=== PATIENT | female | born 1965 | race Caucasian/White ===

== ENCOUNTER → 2019-12-07 13:01 | Outpatient (BNVA) | payer MEDICARE, MEDICAID, SELFPAY | PROVIDERS: Family Provider Nurse Practitioner Family; Visit Provider Family Medicine | DX: M62.838 Other muscle spasm (principal); M25.50 Pain in unspecified joint; F31.12 Bipolar disorder, current episode manic without psychotic features, moderate; F41.0 Panic disorder [episodic paroxysmal anxiety] | CPT/HCPCS: 80053; 83735; 84443; 84550; 85651; 86431 ==

== ENCOUNTER 2020-10-06 12:29 | Outpatient (CLI) | payer MEDICARE, MEDICAID, SELFPAY ==
--- NOTE | 2020-10-06 12:57 | XR_ITS ---
WS: [id number] Lumbar spine, AP, lateral L5-S1 spot, both obliques, lateral in neutral, flexion and extension positi on, 10/06/2020 Clinical Data: M54.5 - Low back pain Comparison: Lateral lumbar spine, 05/17/2014. Findings: No compression fractures or subluxation is seen. No disc space narrowing is seen. The transverse proc esses and SI joints are normal. There is minimal anterior osteoarthritic spurring from L2 through L5. The oblique films show no spondylolysis. On flexion and extension there is no limitation of motion or subluxation. XR/XR lumbar spine 6V w f/e [id number] Impression: 1. 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 2. No spondylolysis on the oblique films. 3. No limitation of motion or subluxation occurs on flexion or extension.
== END 2020-10-06 12:30 | disposition home or self-care (01) ==
LOC: RAD 12:32
PROVIDERS: Family Provider Nurse Practitioner Family; PCP Family Medicine; Visit Provider Family Medicine
DX: M54.5 Low back pain (principal); M47.816 Spondylosis without myelopathy or radiculopathy, lumbar region
CPT/HCPCS: 72114

== ENCOUNTER 2020-10-25 06:00 | Outpatient (RCR) | payer MEDICARE, SELFPAY | END 2020-11-14 23:59 | disposition home or self-care (01) | LOC: TPT 06:00 | PROVIDERS: PCP Family Medicine; Referring Provider Family Medicine; Visit Provider Family Medicine | DX: M54.5 Low back pain (principal) | CPT/HCPCS: 97110; 97162 ==

== ENCOUNTER 2020-11-15 06:00 | Outpatient (RCR) | payer MEDICARE, SELFPAY | END 2020-12-14 23:59 | disposition home or self-care (01) | LOC: TPT 06:00 | PROVIDERS: PCP Family Medicine; Referring Provider Family Medicine; Visit Provider Family Medicine | DX: M54.5 Low back pain (principal) | CPT/HCPCS: 97110 ==

== ENCOUNTER 2020-11-23 12:32 | Outpatient (CLI) | payer MEDICARE, MEDICAID, SELFPAY ==
--- NOTE | 2020-11-23 13:00 | MM_ITS ---
WS: [id number] Bilateral screening digital mammogram, 11/23/2020 Clinical Data: Z12.31 - Encounter for screening mammogram for malignant neoplasm of breast Comparison: 01/29/2019, 09/06/2010, 05/09/2009, 12/03/2006. Findings: The breast parenchymal pattern shows fibroglandular tissue No spiculated masses or clustered calcific ations are seen. There are no secondary signs of carcinoma. MM/[id number] Impression: 1. Negative bilateral mammogram unchanged. 2. Recommend annual screening mammograms. BIRADS: 1-Negative FOLLOW UP: 1 Year Follow-up The CAD calibration checker was used.
== END 2020-11-23 12:33 | disposition home or self-care (01) ==
LOC: RADSHAW 12:37
PROVIDERS: PCP Family Medicine; Visit Provider Family Medicine
DX: Z12.31 Encounter for screening mammogram for malignant neoplasm of breast (principal)
CPT/HCPCS: 77067

== ENCOUNTER 2021-01-19 19:34 | Emergency (ER) | payer MEDICARE, MEDICAID, SELFPAY ==
[2021-01-19 20:22] VITALS: BP 132/85; PULSE 69; RESP 16; TEMP 36.5; O2SAT 99; BMI 24.2
[2021-01-19 23:03] LABS: Add Urine Microscopic? NO; Charge for UA Resulting for Rev
[2021-01-19 23:10] LABS: Bilirubin Urine Neg (Negative); Blood Urine Neg (Negative); Glucose Urine UA Norm (Normal); Ketones Urine Negative (Negative); Leukocyte Esterase Urine Negative (Negative); Nitrate Urine Negative (Negative); Protein Urine Neg (Negative); Urine Appearance Clear (CLEAR); Urine Color Yellow (Yellow); Urobilinogen Urine Norm (Negative); pH Urine 7 (5-7)
--- NOTE | 2021-01-20 01:18 | W.ED.FEMALGU ---
HPI - Female Genitourinary General: Chief complaint: Urogenital-Female Stated complaint: vaginal issues Time Seen by Provider: 01/20/21 01:18 History of Present Illness: HPI Narrative: 55-year-old female comes in tonight with complaints of bulging from her vagina. Patient reports that she had been lifting and carrying about 45 pounds concrete blocks. After her caring schedule she went into take a shower and she noticed a protrusion from her vagina. Patient appears well. Patient appears in no pain. Patient reports that she had a drop off of her estrogen about 20 years ago. Patient was not a good candidate for estrogen replacement she reported. Review of the exam patient has a history of back pain, cigarette smoking. Review of Systems General: Reports: 10 or more systems reviewed and unremarkable except in HPI and below : Reports: other (Pelvic bulging) [facility] ED PFSH: Social History Smoking and tobacco status: current every day smoker Alcohol intake: current Physical Exam Const: COMMON NORMALS: no acute distress and patient oriented x3 GENERAL APPEARANCE: cooperative HENMT: COMMON NORMALS: normocephalic and Normal external nose present HEAD & SCALP: normal to inspection and normocephalic NOSE: Normal external nose present MOUTH: Normal oral and palatal mucosa present Eye: GENERAL EYE: appearance normal, both eyes and all related structures Neck/C-Spine: COMMON NORMALS: full ROM Chest: COMMONS NORMALS: normal inspection of the chest Resp: COMMON NORMALS: normal respiratory effort EFFORT & INSPECTION: Yes able to speak in complete sentences Cardio: COMMON NORMALS: regular rate and regular rhythm RATE: regular rate RHYTHM: regular rhythm GI: COMMON NORMALS: non-tender : COMMON NORMALS: Yes no CVA tenderness BLADDER/KIDNEY EXAM: Yes no CVA tenderness Back/Pelvis: COMMON NORMALS: no CVA tenderness and thoracic and lumbar spine normal to inspection Extremity: COMMON NORMALS: normal to inspection Neuro: COMMON NORMALS: patient oriented x3 and moves all extremities Psych: COMMON NORMALS: mental status grossly normal and cooperative Skin: COMMON NORMALS: no rashes or lesions noted GENERAL SKIN EXAM: no rashes or lesions noted Course Vital Signs: Vital signs: Vital Signs Temperature 97.7 F 01/19/21 20:22 Pulse Rate 69 01/19/21 20:22 Respiratory Rate 16 01/19/21 20:22 Blood Pressure 132/85 01/19/21 20:22 Pulse Oximetry 99 01/19/21 20:22 MDM - Female MDM Narrative: Medical decision making narrative: 55-year-old female comes in today for complaints of a bulging from her vagina. Patient reports she had been lifting some heavy items and when she was taking a shower she noticed a protrusion of her vagina. On exam patient appears well. Patient appears no acute distress. Patient does have some protrusion of the bladder with probably a grade 2 cystocele. Cervix appeared well. No other signs of abnormality was noted. Reviewed exam with patient with recommendations for treatment follow-up with TECHNOLOGY DEVELOPMENT INTERN. Patient reported understanding agreed to Case management referral for consult to TECHNOLOGY DEVELOPMENT INTERN Lab Data: Labs: Lab Results 01/19/21 Range/Units 23:00 Urine Color Yellow (Yellow) Urine Appearance Clear (CLEAR) Urine pH 7 (5-7) Ur Specific Gravit y 1.000 L (1.005-1.030) Urine Protein Neg (Negative) Urine Glucose (UA) Norm (Normal) Urine Ketones Negative (Negative) Urine Blood Neg (Negative) Urine Nitrate Negative (Negative) Urine Bilirubin Neg (Negative) Urine Urobilinogen Norm (Negative) mg/dL Ur Leukocyte Naomy ase Negative (Negative) Discharge Plan Discharge Patient Disposition: Home Clinical Impression: POP-Q stage 2 cystocele Condition: Stable Prescriptions: No Action meloxicam [Mobic] 15 mg tablet 15 mg PO DAILY Qty: 30 RF: 3 lamotrigine 100 mg tablet 100 mg PO DAILY 30 Days Qty: 30 RF: 5 acetaminophen-codeine 300-60 mg tablet 1 tab PO TID PRN (Reason: pain) Qty: 60 RF: 0 Discharge Orders: Discharge ED (Routine); Ordered 01/20/21 Ordered By: Dick Stewart Referrals: Susan Regan MD [Primary Care Provider] - Discharge Diet: Usual diet Discharge Activity: Increase activity as tolerated Patient Instructions: Cystocele (ED), Opioid Safety Activity Restrictions/Additional Instructions: Home and rest. Avoid heavy lifting. Drink plenty of water. Follow-up with TECHNOLOGY DEVELOPMENT INTERN. Return to the ER for new concerns. Coding Level of Care Code ED [employer] Estate Bro[employer] Associate for Chg Fwd Exam Comprehensive
[2021-01-20 02:02] VITALS: BP 145/83; PULSE 67; RESP 18; TEMP 36.6; O2SAT 94
--- NOTE | 2021-01-20 09:27 | DCPLANNER ---
fountain manager had message to schedule a follow up appointment for patient with [facility]. fountain manager called the [facility], spoke with Hayley, gave clinic patients information. fountain manager was told that patients information would be printed and reviewed. Clinic will call patient with appointment information.
--- NOTE | 2021-01-23 07:39 | DCPLANNER ---
Patient has a follow up appointment scheduled for Saturday, February 13, 2021 at 1:[address] Turpin at [facility]. Clinic will call patient with appointment information.
--- NOTE | 2021-02-15 12:11 | DCPLANNER ---
Patient had an appointment scheduled for 02.13.21 at [facility] - appointment was rescheduled.
== END 2021-01-20 02:03 | disposition home or self-care (01) ==
PROVIDERS: Emergency Provider Nurse Practitioner Family; PCP Family Medicine
DX: N81.10 Cystocele, unspecified (principal); F17.210 Nicotine dependence, cigarettes, uncomplicated
CPT/HCPCS: 81003; 99282

== ENCOUNTER → 2021-04-14 08:08 | Outpatient (BNVA) | payer MEDICARE, MEDICAID, SELFPAY | PROVIDERS: PCP Family Medicine; Visit Provider Obstetrics & Gynecology | DX: N81.6 Rectocele (principal); N81.2 Incomplete uterovaginal prolapse; Z20.822 Contact with and (suspected) exposure to COVID-19 | CPT/HCPCS: 87635 ==

== ENCOUNTER 2021-04-19 13:26 | Observation (INO) | payer MEDICARE, MEDICAID, SELFPAY ==
[2021-04-17 10:54] VITALS: BMI 22.6
--- NOTE | 2021-04-17 11:18 | P.ANESASSM_ITS ---
Pre-Anesthetic Assessment Pre-Anesthetic Assessment: Height/Weight: Height 1.65 m Weight 61.689 kg Proposed Procedure: Operation Date: 04/19/21 08:50 Proposed Procedures p Total Vaginal Hysterectomy 13380 [id number] N81.10 N81.2 N81.6(Not Applicable) - MD isac Campa Salpingo-Oophorectomy (Vaginal)(Not Applicable) - MD isac Campa Anterior Repair Anterior Colporrhaphy(Not Applicable) - MD isac Campa Posterior Repair Posterior Colporrhaphy(Not Applicable) - MD isac Campa Sling(Not Applicable) - MD isac Campa Sacrospinous Ligament Suspension(Not Applicable) - Vasu Turpin MD Familial anesthetic complications: none Social: Social History: Tobacco and No alcohol Exam: Pre-Anes Outpt Exam: alert, oriented x 3, clear to auscultation bilatera lly and regular rate & rhythm Airway: MP: 2 Dentition: False Anesthetic Plan: ASA status: 2 Anesthesia: General Risk of > 500 ml blood loss (7ml/kg in children): No PFSH Anesthesia PFSH: Family History Father CAD (coronary artery disease) Other Cancer Chronic kidney disease (CKD) Diabetes Hyperlipidemia Hypertension Psychiatric illness Denies family history of Clotting disorder Dementia Suicide Anesthesia complication Bleeding disorder Lung disease Stroke Data Anesthesia Cardiac Studies: No Data to Display
[2021-04-19] VITALS (20 sets, daily range): BP systolic 72–136; BP diastolic 37–100; PULSE 65–134; RESP 14–24; TEMP 36.1–37.1; O2SAT 90–100
[2021-04-19] MEDS: sodium chloride 0.9% 500 ML IV ×2 (09:53→20:03)
[2021-04-19 10:12] LABS: Charge for UA Resulting for Rev
[2021-04-19 10:13] LABS: OR HCG Qualitative Urine Negative (Negative)
[2021-04-19 10:19] LABS: Urine Appearance Hazy (CLEAR); Urine Color Yellow (Yellow)
[2021-04-19 10:20] LABS: Add Urine Microscopic? YES; Bilirubin Urine Neg (Negative); Blood Urine Neg (Negative); Glucose Urine UA Norm (Normal); Ketones Urine Negative (Negative); Leukocyte Esterase Urine Trace (Negative); Nitrate Urine Negative (Negative); Protein Urine Neg (Negative); Specific Gravity, Urine 1.025 (1.005-1.030); Urobilinogen Urine Norm (Negative); pH Urine 5 (5-7)
[2021-04-19 10:29] LABS: Add Urine Culture? No; Bacteria Urine 1+ /hpf; Mucus Urine 3+ /hpf; WBC Urine 0-4 /hpf (0-5)
[2021-04-19 10:35] LABS: Alanine Aminotransferase 11 U/L (0-33); Albumin Level 4.5 g/dL (3.5-5.2); Alkaline Phosphatase 107 IU/L (35-105); Anion Gap 15.8 (5-19); Aspartate Amino Transferase 13 U/L (0-32); Blood Urea Nitrogen 9 mg/dL (6-20); Calcium 9.2 mg/dL (8.5-10.5); Carbon Dioxide 25 mmol/L (22-29); Chloride 103 mmol/L (98-107); Globulin 2.2 g/dL (1.3-4.6); Glomerular Filtration Rate 86.2 mL/min (90-130); Glucose 87 mg/dL (65-115); Osmolality Calculated 288 mOsm/kg (285-295); Potassium 3.8 mmol/L (3.5-5.1); Sodium 140 mmol/L (136-145); Total Bilirubin 0.4 mg/dL (0.15-1.2); Total Protein 6.7 g/dL (6.6-8.7)
[2021-04-19] MEDS: sodium chloride 0.9% 1,000 ML 30 ML IV ×3 (10:54→14:47)
[2021-04-19] MEDS: scopolamine 1.5 Patch 1 PATCH TRANSDERMA (10:55)
[2021-04-19 11:17] LABS: Basophils # 0.1 10^3/uL (0.0-0.1); Eosinophils # 0.1 10^3/uL (0.0-0.8); Eosinophils % 1.3 %; Hematocrit 46.8 % (37.0-47.0); Hemoglobin 15.9 g/dL (11.5-15.3); Lymphocytes # 2.4 10^3/uL (0.8-4.8); Lymphocytes % 30.4 %; Mean Corpuscular Hemoglobin 32.4 pg (28.0-34.0); Mean Corpuscular Volume 95.5 fl (81-99); Mean Platelet Volume 12.4 fL (7.4-10.4); Monocytes # 0.5 10^3/uL (0.2-0.9); Monocytes % 6.1 %; Neutrophils # 4.74 10^3/uL (1.8-7.7); Neutrophils % 61.1 %; Nucleated Red Blood Cells % 0 %; Platelet Count 204 10^3/cmm (130-400); Red Cell Distribution Width 12.7 % (12.1-15.1); White Blood Count 7.8 10^3/uL (4.0-10.0)
--- NOTE | 2021-04-19 11:24 | W.PM.OPSUD ---
Surgery/Procedure H&P Update DATE OF PROCEDURE: April 19, 2021 DATE H&P PERFORMED: 04/17/21 H&P UPDATE INFORMATION: I have reviewed H&P completed within last 30 days, I have examined patient prior to procedure and No changes to prior documentation PREOP DIAGNOSIS: Uterine prolapse, cystocele, rectocele, stress urinary incontinence PLANNED PROCEDURE: Operation Date: 04/19/21 10:30 Proposed Procedures p Total Vaginal Hysterectomy 26170 43050 [id number] 61787 N81.10 N81.2 N81.6(Not Applicable) - Vasu Turpin MD s Salpingo-Oophorectomy (Vaginal)(Not Applicable) - Vasu Turpin MD s Anterior Repair Anterior Colporrhaphy(Not Applicable) - Vasu Turpin MD s Posterior Repair Posterior Colporrhaphy(Not Applicable) - Vasu Turpin MD s Sling(Not Applicable) - Vasu Turpin MD s Sacrospinous Ligament Suspension(Not Applicable) - Vasu Turpin MD
[2021-04-19] MEDS: ceFOXitin 2,000 MG in sodium chloride 0.9% (plus) 50 ML 100 MG IV (11:30)
[2021-04-19] MEDS: estrogens Conjugated Cream 30 gm 1 APPLIC VAGINAL (13:04)
--- NOTE | 2021-04-19 13:52 | P.OP_ITS ---
Operative Report Date of procedure: April 19, 2021 Pre-op Diagnosis: Uterine prolapse, cystocele, rectocele, stress urinary incontinence Post-op diagnosis: same Procedure Done: Total vaginal hysterectomy with bilateral salpingo-oophorectomy. Anterior colporrhaphy augmented with allograft. Single incision mid urethral slings. Posterior colporrhaphy. Sacrospinous fixation. Cystoscopy. Specimens removed/disposition: Uterus left and right ovaries Pathology: Uterus left and right ovaries. Surgeon: Vasu Turpin MD Anesthesia: General Estimated blood loss (mL): 300 IV fluids (mL): 1,400 Urine output (mL): 300 Complications: bleeding Condition: stable Disposition: PACU Procedure: After obtaining informed consent, the patient was taken to the operating room and placed in the supine position, given general anesthesia, and prepped and draped in sterile fashion. The abdomen, vulva and vagina were prepped and draped in a sterile manner. A time out procedure was performed. Exam under anesthesia performed. A Alonso catheter was placed in the bladder. A vaginal bookwalter retractor was placed in the vagina to visualize the cervix. The cervix was grasped across the anterior lip with a single-toothed tenaculum and circumferentially infiltrated with 1% Xylocaine with epinephrine at this time. The cervix was circumferentially excised with the scalpel. The vaginal mucosa was dissected superiorly with sharp dissection. The anterior peritoneal reflection was identified, and it was entered with Metzenbaum scissors. A posterior colpotomy was made through the cul-de-sac space. The posterior peritoneum was identified in similar fashion and Metzenbaum scissors were used to enter the cul-de-sac. At this time, the Bookwalter vaginal retractor's posterior blade was placed, advanced posteriorly into the cul-de-sac. At this time, the left and right uterosacral ligaments were isolated and ligated with 0 Vicryl. The Enseal device was then used in a serial fashion up through the cardinal ligaments bilaterally. Finally, the uterine arteries were cross-clamped, cut, and ligated with the Enseal device. Enseal device was then used up through the broad ligaments superiorly and finally the uterus was rotated posteriorly. The left and right tubes were then cross-clamped and ligated with Enseal device. The uterus was excised and submitted for pathologic evaluation. No other abnormalities were noted in the pelvic cavity. Tag sutures had been left on the remnants of the uterosacral ligaments. The right uterosacral ligament tag was placed under traction to identify the remnants of the right uterosacral ligament. A #0 Vicryl suture was placed to the proximal right uterosacral ligament and sutured to the anterior and posterior pelvic fascia beneath the vaginal cuff on the right side. Identical process was performed on the left, although some difficulty was encountered in identifying and actually suturing through the attenuated left uterosacral ligament. Both these sutures were tied to elevate the vaginal cuff. The remaining vaginal cuff mucosa and anterior and posterior fascia were then closed. At this time, instruments were removed from the patient's abdominopelvic cavity. Vaginal cuff closure and peritoneum were incorporated into one layer with 0 Vicryl suture in a continuous running interlocking fashion. Hemostasis was noted to be achieved. Then the anterior vaginal mucosa beneath the midurethra was infiltrated with 0.5% Marcaine with epinephrine. A vertical midline incision was made beneath the midurethra, nearly 1.5 cm length. Careful submucosal dissection was performed bilaterally up to the interior portion of the inferior pubic ramus. The insertion of adductor longus tendon on the patient?s pubic ramus was identified as reference land debra. Palpated the notch along the internal edge of ischiopubic ramus where the adductor longus tendon and the inferior pubic ramus meet. The Altis single incision sling (SIS) was selected. Then the needle of the SIS inserted aiming at the location of this notch. One of the integrated self- fixating tips place onto the needle by sliding it over the end of the needle. The needle/sling assembly was inserted toward the location of identified reference notch making sure that the flat of the handle is perpendicular to the desired path. The needle was tracked along the posterior surface of the ischiopubic ramus until the midline debra on the mesh is approximately at the midline position under the urethra. The needle was removed and the same was repeated on the contralateral side until the appropriate sling tension under the urethra was achieved ensuring that the mesh lays flat. The needle was removed and vaginal incision was closed in a running interlocking fashion with 2-0 Vicryl. Then an anterior colporrhaphy was performed. The vaginal mucosa was then injected in the midline with normal saline. The vaginal mucosa was then injected in the midline with normal saline. The vaginal mucosa was scored in the midline with the Bovie approximately 1 cm medial to the urethral meatus to 1 cm distal to the vaginal cuff. This vaginal mucosa was then undermined and then incised in the midline with the Metzenbaum scissors. The lateral aspects of the vaginal mu cosa were then grasped with the Allis clamps and the vaginal mucosa was then dissected off the underlying fascia with the Metzenbaum scissors. Again, there was noted to be quite a bit of oozing at the incision, which was controlled with cautery. After adequate dissection was performed, bilaterally. A Coloplast allograft was modified at time of application to fit spacea, 3 x 3 cm piece . The coloplast allograft was placed in front of cystocele ready to be implanted with the Basement Membrane facing the vagina mucosa. Suture is placed at distal end of graft and placed towards vaginal cuff. Final suture is placed on proximal portion of the graft to complete the placement overlying the bladder. Then Interrupted vertical mattress sutures of 0 Vicryl were used to elevate the cystocele superiorly. The excessive vaginal mucosa was then trimmed with the Metzenbaum scissors and the vaginal mucosa was then reapproximated in the running interlocking fashion with 2-0 Vicryl. The posterior vaginal mucosa is opened in the routine fashion for posterior colporrhaphy. A finger is inserted through the incision in the posterior vaginal mucosa, dissecting out the rectovaginal space (RVS). The right rectal pillar (RRP) is identified. The rectal pillar can be bluntly perforated either with the [finger or with the tip of a long Sejal clamp]. A [Brelitoy-Navtil] retractor is used for exposing the rectovaginal space in order to enter the pararectal space with retraction of the cardinal ligament, vagina, and rectum. Displacing the rectum to the left and the cardinal ligament and ureter anteriorly. A sponge dissector is used to bluntly dissect the sacrospinous ligament removing areolar tissue. The ischial spine was palpated directly, and a area approximately 2 cm medial to the spine was selected for insertion of the Anchorsure transvaginal sacrospinous fixation system. One end of the suture of Anchoresure system inserted through the sacrospinous ligament is placed through the muscular layer of the vagina. In a similar manner, the second suture is placed. The opposite end of the suture in the sacrospinous ligament is left free and held on a small hemostat. Then traction on this suture will draw the vaginal vault directly to the ligament, where a square knot affixes it to the sacrospinous ligament. After the edwina stich is tied the second safety stich is tied. Then the colporrhaphy/vaginal repair is carried out in routine fashion. Posterior colpoperineorrhaphy was performed with Allis clamps to grasp hymenal caruncles to allow 2-3 fingerbreadths caliber; infiltrated with 1% Lidocaine with epinephrine before triangular incision to excise fibrotic subdermal rectovaginal tissue from old perineal laceration. Fascia dissected off towards vaginal cuff and deemed weakened and thinned-out in midline; colporrhaphy performed with interrupted mattress 0-Vicryl sutures before reinforced with a tension-free 5x5 cms ``in-laid patch of porcine graft towards perineal body after a separate crown stitch with 0-Vicryl performed. Field irrigated; hemostasis secured before vaginal incision closed running- locked with 3-0 Vicryl. Premarin-soaked vaginal pack left in-place overnight. Then the Alonso catheter was removed and cystoscope was inserted. The bladder was filled with sterile water. Complete evaluation of the bladder mucosa was performed noting no lacerations, dimpling, tears, bleeding of the mucosa or muscular layers. Both ureteral orifices were identified. Prompt excretion of urine from both ureteral orifices was noted. Cystoscope was withdrawn. A vaginal packing with Premarin cream was placed and the patient was taken out of dorsal lithotomy position and awakened from the general anesthesia. Excellent hemostasis was obtained. Sponge, lap, needle, and instrument counts were correct times three. The patient was taken to the recovery room, awake and in stable condition.
[2021-04-19] MEDS: meperidine 50 mg/mL INJ 12.5 MG IVP ×2 (14:01→14:09)
[2021-04-19] MEDS: ondansetron 2 mg/ML SDV 2 mL 4 MG IVP (14:15)
[2021-04-19] MEDS: ketorolac 30 mg/mL INJ IVP ×2 (15:29→21:02)
[2021-04-19] MEDS: HYDROcodone-acetaminophen 5-325 mg Tablet PO ×2 (15:30→22:18)
[2021-04-19] MEDS: LORazepam 0.5 mg Tablet 0.25 MG PO ×2 (16:45→23:50)
[2021-04-19] MEDS: docusate sodium 100 mg Capsule PO (18:25)
--- NOTE | 2021-04-19 20:55 | PC.NURSE ---
Addendum entered by Briseida Wade RN 04/19/21 21:00: Care assumed at 1940 with report given at this time. Original Note: ASSUMING CARE Report from Eloy Santiago RN. Patient resting in bed with D5LR running at 125 mL/hour. Patient reports cramping from vaginal packing. 500mL bolus initiated due to urine output of 50mL in 2 hours. Notified patient that next dose of toradol at 2100 and 0300 following the 2100 dose. Vaginal packing and pad assessed, minimal bleeding. Notified that packing and hall catheter will be removed at 0500 and that a hemagram will also be done. Incentive spirometer taken to patient and explained, RN assessed patient 4 times and patient reached goal of 2200. SCD's pump also taken to room and placed on patient. Patient denies any further needs at this time.
[2021-04-19] MEDS: dextrose 5%-lactated ringers 1,000 ML 125 ML IV (21:34)
[2021-04-20 02:07] VITALS: BP 96/57; PULSE 73; RESP 18; O2SAT 97
[2021-04-20] MEDS: HYDROcodone-acetaminophen 5-325 mg Tablet PO ×2 (04:31→10:16)
[2021-04-20 04:41] VITALS: BP 104/63; PULSE 63; RESP 16; TEMP 36.8; O2SAT 99
--- NOTE | 2021-04-20 05:05 | PC.NURSE ---
Vaginal packing removed at 0437. All packing intact. Patient tolerated well.
[2021-04-20 05:12] LABS: Hematocrit 30.5 % (37.0-47.0); Hemoglobin 10.5 g/dL (11.5-15.3); Mean Corpuscular HGB Conc 34.4 g/dL (30.0-36.0); Mean Corpuscular Hemoglobin 32.4 pg (28.0-34.0); Mean Corpuscular Volume 94.1 fl (81-99); Platelet Count 156 10^3/cmm (130-400); Red Blood Count 3.24 10^6/uL (4.1-5.3); Red Cell Distribution Width 12.8 % (12.1-15.1); White Blood Count 11.4 10^3/uL (4.0-10.0)
--- NOTE | 2021-04-20 07:13 | PC.NURSE ---
Post void residual of 82 mL.
[2021-04-20] MEDS: acetaminophen 325 mg Tablet 650 MG PO (08:55)
[2021-04-20] MEDS: docusate sodium 100 mg Capsule PO (08:55)
[2021-04-20 10:20] VITALS: BP 125/73; PULSE 79; RESP 18; TEMP 36.8
--- NOTE | 2021-04-20 10:55 | P.DS_ITS ---
Discharge Providers RED HAT ENGINEER Date of Admission: 04/19/21 13:26 Date of Discharge: 04/20/21 Attending Provider at Admission: Vasu Turpin MD Attending Provider at Discharge: Vasu Turpin MD Primary Care Provider: Susan Regan MD Diagnoses at Discharge Discharge Diagnosis (1) Status post vaginal hysterectomy: Status: Acute Reason for Visit Reason for Visit: total vaginal hysterectomy Hospital Course Hospital Course Mrs. Cummings 55-year-old with uterine prolapse stage II cystocele stage III admitted for planned total vaginal hysterectomy with bilateral salpingo- oophorectomy, anterior colporrhaphy augmented with allograft, single incision mid urethral sling, posterior colporrhaphy, and sacrospinous fixation. The procedures were performed without complication with the exception of mild bleeding. Overnight observation was uneventful. Urine output was adequate. PVR within normal limits. Tolerating diet well. Ambulating without difficulty. She is operative day 1, afebrile and hemodynamically stable. Physical Exam Narrative: EXAM NARRATIVE: GA: Alert and oriented ?3. HEENT: WNL. Heart: Regular rate and rhythm. Lungs: Clear to auscultation bilaterally. Abdomen: Bowel sounds present, nontender. 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 Extremities: No edema, no cyanosis, no calves pain. Urinary Catheter Management^: Alonso: Cath Placed During This Visit: yes Urinary Catheter Date of Insertion: 04/19/21 Urinary Catheter Time of Insertion: 11:58 History History History 3 Term 3 Miscarriages/Ectopic 0 0 Living Children 3 Discharge Data Data Completed and Pending: Pending at discharge Category Date Time Status Pathology: Surgic al [PTH] Routine Pth 04/19/21 12:48 Received Labs from last 24 hours 04/20/21 04/19/21 04/19/21 04:44 09:45 09:45 WBC 11.4 H 7.8 RBC 3.24 L 4.90 Hgb 10.5 L D 15.9 H Hct 30.5 L D 46.8 MCV 94.1 95.5 MCH 32.4 32.4 MCHC 34.4 34.0 RDW 12.8 12.7 Plt Count 156 204 MPV 12.0 H 12.4 H Neut % (Auto) 61.1 Lymph % (Auto) 30.4 Riley % (Auto) 6.1 Eos % (Auto) 1.3 Baso % (Auto) 1.0 Neut # (Auto) 4.74 Lymph # (Auto) 2.4 Riley # (Auto) 0.5 Eos # (Auto) 0.1 Baso # (Auto) 0.1 Nucleated RBC % (a uto) 0 Nucleated RBCs # 0.0 Blood Type O Positive Rho(D) Type Positive Antibody Screen Negative Vitals: Last Vital Signs Temp 98.2 F 04/20/21 10:20 Pulse 79 04/20/21 10:20 Resp 18 04/20/21 10:20 BP 125/73 04/20/21 10:20 Pulse Ox 99 04/20/21 04:41 Discharge Plan Discharge Patient Disposition: Home Condition: Stable Prescriptions: New acetaminophen 325 mg capsule 325 mg PO Q4H PRN (Reason: fever or postoperative pain pain) Qty: 60 RF: 0 ibuprofen 800 mg tablet 800 mg PO TID PRN (Reason: pain) Qty: 60 RF: 0 Colace 100 mg capsule 100 mg PO BID Qty: 60 RF: 0 hydrocodone-acetaminophen 5-325 mg tablet 1 tab PO Q4H PRN (Reason: pain) Qty: 30 RF: 0 Iron (ferrous sulfate) 325 mg (65 mg iron) tablet 325 mg PO BID Qty: 60 RF: 0 Continued lamotrigine 100 mg tablet 100 mg PO DAILY 30 Days Qty: 30 RF: 5 elderberry fruit 200 mg Capsule 200 mg PO DAILY RF: 0 Discharge Orders: Discharge Order (Routine); Ordered 04/20/21 Ordered By: Vasu Turpin Referrals: Vasu Turpin MD [Physician] - 05/05/21 8:00 am (Your 2 week post-op appointment is scheduled for 05/05/21 @8:00. Your 6 week post-op appointment is scheduled for 06/02/21 @8:45. ) Discharge Diet: Soft Mechanical Discharge Activity: Increase activity as tolerated Patient Instructions: Bowel Obstruction, Opioid Safety (DC), Vaginal Hysterectomy (DC), Anterior Vaginal Repair (GEN), Posterior Vaginal Repair (GEN), OB Discharge Report, OB Food/Drug Interaction Guide, Opioid Safety Activity Restrictions/Additional Instructions: 1. Please call [facility] on next working day to make your post-operative appointment in 2 weeks. 2. Please stay home until you come back to the clinic on first post-operative check up. 3. Please follow instructions on your medications CAREFULLY. 4. If you have abdominal incision, do not cover it unless dressing is necessary because of drainage. OK to shower, but avoid bath. Leave steri-strips until they fall off. If they are still on one week after surgery, you may remove them. 5. If you had vaginal surgery or vaginal repair, Dr. Turpin may instruct you to take SITZ bath. 6. Yellow, blood tinged odorous vaginal discharge is usually normal after hysterectomy or vaginal surgeries. 7. No sexual intercourse, tampons, or douches until you are completely released from the post-operative care. 8. Avoid constipation by eating right and maybe using some Metamucil or Milk of Magnesia. 9. All prescription refills are given during the working hours. Please do no wait till it runs out. Call the clinic at [phone] before your medication runs out. The clinic will get in touch with your doctor to prescribe medications if necessary. 10. Please remain within 40 mile radius from our hospital because emergencies do happen now and then during the post-operative period. 11. If you have stairs at home, take one step at a time slowly and minimize the number of trips. It helps to stay in one floor for the next few days. No lifting except what you can lift by one hand until you are released from the post-operative care. 12. Driving is discouraged until you are well healed. It may be 3-4 weeks before you feel strong enough to drive. You should be able to turn and look through the rear window without pain and you should be able to push the brake pedal very hard without pain before you drive. No fast rules, but SAFETY should be your primary concern. DO NOT drive if you are on sedating medications such as narcotics. 13. Call the clinic (during working hours) to make urgent appointment or go to the Emergency room, if any of the following occurs: i. Vaginal bleeding becomes heavy, more than a period. ii. Incision becomes red and sore, or drains pus. iii. Your temperature is over 100.4 or you have chill. iv. IV site becomes red and swollen (a little ``knot?? is usually OK) v. Persistent nausea and vomiting vi. Persistent constipation or diarrhea vii. Rash or allergic reaction to medications. Discharge Attestations RED HAT ENGINEER Time Spent in Discharge Care*: greater than 30 min Coding Level of Care Code Acute Ground Crew Supervisor for Chg Fwd Diagnoses Status post vaginal hysterectomy Z90.710
[2021-04-20 11:20] VITALS: BP 114/79; PULSE 71; RESP 16; TEMP 36.6
[2021-04-20 11:30] VITALS: BP 114/79; PULSE 71; RESP 16; TEMP 36.6
== END 2021-04-20 11:30 | disposition home or self-care (01) ==
LOC: OBGYN 13:27
PROVIDERS: Admitting Provider Obstetrics & Gynecology; PCP Family Medicine; Visit Provider Obstetrics & Gynecology
PROC: (CPT 57260; principal; 2021-04-19 10:25)
PROC: (CPT 58720; 2021-04-19 10:25)
PROC: 0JQC0ZZ Repair Pelvic Region Subcutaneous Tissue and Fascia, Open Approach (ICD-10-PCS; CPT 57240; 2021-04-19 10:25)
PROC: (CPT 57250; 2021-04-19 10:25)
PROC: (CPT 57288; 2021-04-19 10:25)
PROC: (CPT 57282; 2021-04-19 10:25)
DX: N81.2 Incomplete uterovaginal prolapse (principal); N39.3 Stress incontinence (female) (male); F17.210 Nicotine dependence, cigarettes, uncomplicated; Z98.51 Tubal ligation status
CPT/HCPCS: 57260; 57267; 57282; 57288; 58262; 36415; 51798; 80053; 81001; 81003; 81025; 84703; 85025; 85027; 86850; 86900; 88305; 96365; C1713; C1762; G0378; J0694; J1170; J1885; J2175; J2405; J2704; J3010; J3490; J7030; J7040; Q9968

== ENCOUNTER → 2021-06-23 08:07 | Outpatient (BNVA) | payer MEDICARE, MEDICAID, SELFPAY | PROVIDERS: PCP Family Medicine; Visit Provider Obstetrics & Gynecology | DX: N89.8 Other specified noninflammatory disorders of vagina (principal) | CPT/HCPCS: 87635 ==

== ENCOUNTER 2021-06-29 10:31 | Day surgery (SDC) | payer MEDICARE, MEDICAID, SELFPAY ==
[2021-06-23 09:02] VITALS: BMI 22.4
--- NOTE | 2021-06-23 14:30 | P.ANESASSM_ITS ---
Pre-Anesthetic Assessment Pre-Anesthetic Assessment: Height/Weight: Height 1.65 m Weight 61.235 kg Preop Diagnosis: Uterine prolapse, cystocele, rectocele, stress urinary incontinence Proposed Procedure: Operation Date: 06/29/21 12:00 Proposed Procedures p Vaginal Incision Revision 95321/granulation tissue of vagins N89.8(Not Applicable) - Vasu Turpin MD Familial anesthetic complications: None Was Beta Sherri taken within 24 hours: N/A Was Clonidine taken within 24 hours: N/A Social: Social History: Tobacco Exam: Pre-Anes Outpt Exam: alert, oriented x 3, clear to auscultation bilaterally and regular rate & rhythm Airway: Submandibular: WNL Cervical ROM: WNL MP: 1 Dentition: False History/ROS: No significant complaints Pulmonary: Pulmonary: None reported Comments: Hx of bronchitis CV/HEM: CV/HEM: None reported : : None reported Hepatic: Hepatic: None reported GI: GI: GERD Metabolic: Metabolic: None reported Musc/skel: Musc/skel: Lower Back Pain Neuropsych: Neuropsych: None reported Anesthetic Plan: ASA status: 2 Anesthesia: General Risk of > 500 ml blood loss (7ml/kg in children): No PFSH Anesthesia PFSH: Medical History (Updated 06/03/21 @ 11:47 by Vasu Turpin MD) Aftercare following surgery of the genitourinary system Surgical History (Updated 05/05/21 @ 10:19 by Vasu Turpin MD) H/O: hysterectomy 04/19/2021- bilateral salpingo oophorectomy, anterior colporrhaphy augmented with allograft, single incision mid urethral slings, posterior colporrhaphy, sacrospinous fixation and cystoscopy History of bilateral tubal ligation [place], [place] by Dr. Barone Family History Father CAD (coronary artery disease) Other Cancer Chronic kidney disease (CKD) Diabetes Hyperlipidemia Hypertension Psychiatric illness Denies family history of Clotting disorder Dementia Suicide Anesthesia complication Bleeding disorder Lung disease Stroke Data Anesthesia Cardiac Studies: No Data to Display
[2021-06-29] VITALS (10 sets, daily range): BP systolic 122–150; BP diastolic 68–88; PULSE 72–110; RESP 12–18; TEMP 36.3–36.6; O2SAT 93–98
[2021-06-29] MEDS: sodium chloride 0.9% 500 ML IV (11:05)
[2021-06-29] MEDS: sodium chloride 0.9% 1,000 ML 30 ML IV (11:19)
--- NOTE | 2021-06-29 11:20 | P.ANESUD_ITS ---
Pre-Anesthetic Update Pre-Anesthetic Assessment: Date of Surgery/Procedure: 06/29/21 Preop Araseli gnosis: Vaginal granulation tissue and partial dehiscence Proposed Procedure: Operation Date: 06/29/21 12:00 Proposed Procedures p Vaginal Incision Revision 38547/granulation tissue of vagins N89.8(Not Applicable) - Vasu Turpin MD Any changes to Pre-Anesthetic Assessment?: No Last Intake: Intake Last Liquid Date 06/28/21 Last Liquid Time 20:00 Last Solid Date 06/28/21 Last Solid Time 20:00 Vitals: Temperature 97.8 F 06/29/21 10:53 Temperature Source Temporal Artery S can 06/29/21 10:53 Pulse Rate 75 06/29/21 10:53 Respiratory Rate 16 06/29/21 10:53 Blood Pressure 150/87 06/29/21 10:53 Blood Pressure Nia n 108 06/29/21 10:53 Pulse Oximetry 97 06/29/21 10:53 Oxygen Delivery Me thod 06/29/21 10:53 Exam: Pre-Anes Outpt Exam: alert, oriented x 3, clear to auscultation bilat erally and regular rate & rhythm Other Pertinent Information: Other Pertinent Information: Syncope w/ IV, brief, witnessed. A x O 3 now, will proceed with surgery. Fluid bolus admin. Cardiac Studies: No Data to Display
[2021-06-29 11:22] LABS: Add Urine Microscopic? YES; Bilirubin Urine Neg (Negative); Blood Urine Trace (Negative); Glucose Urine UA Norm (Normal); Ketones Urine Negative (Negative); Leukocyte Esterase Urine 2+ (Negative); Nitrate Urine Negative (Negative); Protein Urine Neg (Negative); Specific Gravity, Urine 1.015 (1.005-1.030); Urine Appearance Clear (CLEAR); Urine Color Yellow (Yellow); Urobilinogen Urine Norm (Negative); pH Urine 6 (5-7)
[2021-06-29 11:23] LABS: Add Urine Culture? No; Bacteria Urine 2+ /hpf; Mucus Urine 1+ /hpf; WBC Urine 25-40 /hpf (0-5)
[2021-06-29 11:32] LABS: Basophils # 0.1 10^3/uL (0.0-0.1); Basophils % 0.9 %; Eosinophils # 0.1 10^3/uL (0.0-0.8); Eosinophils % 1.2 %; Hematocrit 44.2 % (37.0-47.0); Hemoglobin 14.7 g/dL (11.5-15.3); Lymphocytes # 2.3 10^3/uL (0.8-4.8); Mean Corpuscular HGB Conc 33.3 g/dL (30.0-36.0); Mean Corpuscular Hemoglobin 31.8 pg (28.0-34.0); Mean Corpuscular Volume 95.7 fl (81-99); Mean Platelet Volume 11.5 fL (7.4-10.4); Monocytes # 0.4 10^3/uL (0.2-0.9); Monocytes % 5.9 %; Neutrophils # 3.93 10^3/uL (1.8-7.7); Neutrophils % 57.9 %; Nucleated Red Blood Cells % 0 %; Platelet Count 187 10^3/cmm (130-400); Red Blood Count 4.62 10^6/uL (4.1-5.3); Red Cell Distribution Width 12.4 % (12.1-15.1); White Blood Count 6.8 10^3/uL (4.0-10.0)
--- NOTE | 2021-06-29 11:42 | W.PM.OPSUD ---
Surgery/Procedure H&P Update DATE OF PROCEDURE: June 29, 2021 DATE H&P PERFORMED: 06/26/21 H&P UPDATE INFORMATION: I have reviewed H&P completed within last 30 days, I have examined patient prior to procedure and No changes to prior documentation PREOP DIAGNOSIS: Vaginal granulation tissue and partial dehiscence PLANNED PROCEDURE: Operation Date: 06/29/21 12:00 Proposed Procedures p Vaginal Incision Revision 99206/granulation tissue of vagins N89.8(Not Applicable) - Vasu Turpin MD
[2021-06-29 11:48] LABS: Alanine Aminotransferase 16 U/L (0-33); Albumin Level 4.4 g/dL (3.5-5.2); Alkaline Phosphatase 120 IU/L (35-105); Anion Gap 17.8 (5-19); Aspartate Amino Transferase 16 U/L (0-32); Blood Urea Nitrogen 11 mg/dL (6-20); Calcium 8.5 mg/dL (8.5-10.5); Carbon Dioxide 21 mmol/L (22-29); Chloride 105 mmol/L (98-107); Globulin 2.3 g/dL (1.3-4.6); Glomerular Filtration Rate 86.2 mL/min (90-130); Glucose 88 mg/dL (65-115); Osmolality Calculated 289 mOsm/kg (285-295); Potassium 3.8 mmol/L (3.5-5.1); Sodium 140 mmol/L (136-145); Total Bilirubin 0.2 mg/dL (0.15-1.2); Total Protein 6.7 g/dL (6.6-8.7)
[2021-06-29] MEDS: lidocaine 2% INJ 20 mL INJECTION (12:31)
--- NOTE | 2021-06-29 12:50 | PM.OP ---
Operative Report Date of procedure: June 29, 2021 Pre-op Diagnosis: Vaginal granulation tissue and partial dehiscence Post-op diagnosis: same Procedure Done: Vaginal incision revision and granulating tissue removal Pathology: none sent Lithographic Proofer: Vasu Turpin MD Estimated blood loss (mL): 5 IV fluids (mL): 600 Urine output (mL): 25 Condition: stable Disposition: PACU Procedure: After obtaining informed consent, the patient was taken to the operating room and placed in the supine position, given general anesthesia, and prepped and draped in sterile fashion. The abdomen, vulva and vagina were prepped and draped in a sterile manner. A time out procedure was performed. The anterior vaginal mucosa beneath the midurethra was infiltrated with 0.5% Marcaine with epinephrine. The granulation tissue sorrounding the partial dehsence of midurethral incision was removed with bovie. Then the vaginal mucose beneath the midurethra, was undemined with Metzenbaum scissors and careful submucosal dissection was performed and vaginal incision was reapproximated and closed in a running interlocking fashion with 2-0 Vicryl. Excellent hemostasis was obtained. Sponge, lap, needle, and instrument counts were correct times three. The patient was taken to the recovery room, awake and in stable condition.
--- NOTE | 2021-06-29 13:02 | P.PCN_ITS ---
PACU note PACU note: VSS, Good respiratory effort, report to TON CONTAINER FILLER Post-Anesthesia Exam: awake
--- NOTE | 2021-06-29 13:02 | PM.PACU ---
PACU note PACU note: VSS, Good respiratory effort, report to ELECTRICAL LABORATORY TECHNICIAN Post-Anesthesia Exam: awake
--- NOTE | 2021-06-29 14:32 | ANE.PACU2 ---
Inpatient post-anesthesia follow up: Airway intact: Yes Vital signs: Temperature 98 F Pulse Rate 80 Respiratory Rate 16 Blood Pressure 122/80 Pulse Oximetry 95 Oxygen Delivery Me thod Room Air Oxygen Flow Rate 6 Fraction of Inspir ed Oxygen Hydration adequate: Yes Nausea and vomiting: No Pain level: 3 Mental status: Baseline
== END 2021-06-29 14:25 | disposition home or self-care (01) ==
PROVIDERS: PCP Family Medicine; Visit Provider Obstetrics & Gynecology
PROC: (CPT 12020; principal; 2021-06-29 12:00)
DX: A58 Granuloma inguinale (principal); Z82.49 Family history of ischemic heart disease and other diseases of the circulatory system; F17.210 Nicotine dependence, cigarettes, uncomplicated; K21.9 Gastro-esophageal reflux disease without esophagitis; N89.8 Other specified noninflammatory disorders of vagina
CPT/HCPCS: 12020; 36415; 80053; 81001; 85025; 86850; 86900; 96365; J0330; J0690; J1100; J2405; J2704; J3010; J3490; J7030; J7040

== ENCOUNTER → 2021-08-08 17:15 | Outpatient (BNVA) | payer MEDICARE, MEDICAID, SELFPAY | PROVIDERS: PCP Family Medicine; Visit Provider Family Medicine | DX: N64.52 Nipple discharge (principal); F41.9 Anxiety disorder, unspecified; N64.4 Mastodynia | CPT/HCPCS: 80053; 84146; 84443 ==

== ENCOUNTER 2021-08-25 13:14 | Outpatient (CLI) | payer MEDICARE, MEDICAID, SELFPAY ==
--- NOTE | 2021-08-25 13:20 | US_ITS ---
WS: [id number] ULTRASOUND BREASTS BILATERAL TECHNIQUE: Ultrasound bilateral breasts focused area of concern. CLINICAL INFORMATION: N64.4 - Mastodynia clear LEFT breast nipple discharge. COMPARISON: Ultrasound and mammogram November 23, 2020 FINDINGS: Ultrasound bilateral breasts at the areola and patient directed areas LEFT breast in the area of pain . Normal underlying parenchymal tissue. No suspicious abnormalities. Tiny incidental cyst measuring 3 mm at the 6:00 position areola. Comparison RIGHT breast areola is normal in appearance. No suspiciou s lesions to target for biopsy. US/US breast LT complete [id number] IMPRESSION: BI-RADS 2 benign FOLLOW UP: Return to annual screening mammography.
== END 2021-08-25 13:15 | disposition home or self-care (01) ==
LOC: RAD 13:15
PROVIDERS: PCP Family Medicine; Visit Provider Family Medicine
DX: N64.4 Mastodynia (principal); N64.52 Nipple discharge
CPT/HCPCS: 76641

== ENCOUNTER → 2021-09-19 09:17 | Outpatient (BNVA) | payer MEDICARE, MEDICAID, SELFPAY | PROVIDERS: PCP Family Medicine; Visit Provider Obstetrics & Gynecology | DX: N81.4 Uterovaginal prolapse, unspecified (principal) | CPT/HCPCS: 81000 ==

== ENCOUNTER → 2021-10-09 10:04 | Outpatient (BNVA) | payer MEDICARE, MEDICAID, SELFPAY | PROVIDERS: PCP Family Medicine; Visit Provider Obstetrics & Gynecology | DX: N99.3 Prolapse of vaginal vault after hysterectomy (principal); Z01.812 Encounter for preprocedural laboratory examination; Z20.822 Contact with and (suspected) exposure to COVID-19 | CPT/HCPCS: 80053; 81000; 85025; 86850; 86900; 87635 ==

== ENCOUNTER 2021-10-11 17:16 | Observation (INO) | payer MEDICARE, MEDICAID, SELFPAY ==
[2021-10-06 13:05] VITALS: BMI 23.6
--- NOTE | 2021-10-06 14:59 | P.ANESASSM_ITS ---
Pre-Anesthetic Assessment Height/Weight: Height 1.65 m Weight 64.41 kg Preop Diagnosis: Vaginal granulation tissue and partial dehiscence Operation Date: 10/11/21 12:05 Proposed Procedures p Sacrospinous Ligament Suspension 04245/n99.3(Not Applicable) - Vasu Turpin MD Familial anesthetic complications: Has had a panic attack on awakening Was Beta Sherri taken within 24 hours: N/A Was Clonidine taken within 24 hours: N/A Social Tobacco and No alcohol Exam alert, oriented x 3, clear to auscultation bilaterally and regular rate & rhythm Airway Submandibular: within normal limits Cervical ROM: Other (Full ROM but with some pain in extension ) Mallampati: Class II Dentition: false Pulmonary Exertional Dyspnea and None reported subureteral sling erosion Hepatic None reported GI None reported Metabolic None reported Musc/skel None reported Neuropsych Anxiety Anesthetic Plan ASA status: 3 (56 year female smoker ) Anesthesia: Anesthesia Evaluation and General Other: We discussed risk and benefits of general anesthesia including PONV, sore throat (sometimes severe), corneal abrasion, positioning and peripheral nerve injuries, life threatening allergic reaction, post operative ICU admission requiring prolonged intubation, stroke, heart attack, , and rare incidences of recall. Patient consents to proceed with general anesthesia. Risk of > 500 ml blood loss (7ml/kg in children): No Other Pertinent Information Today I conducted a brief goal based motivational smoking cessation intervention with the patient. We discussed the health risk of prolonged tobacco use, as well as the risk of richard-operative tobacco use and its impact on wound healing/post- op infections. Patient realizes her smoking has impaired her recovery and stated this on her own w/o prompting. She states she is actively working at permanent cessation. Medications/Allergies Home Medications Medication Instructions Recorded Confirmed Last Taken Type elderberry fruit 200 mg capsule 200 mg PO DAILY 04/17/21 10/06/21 06/28/21 History docusate sodium 100 mg capsule 100 mg PO DAILY cap 06/02/21 10/06/21 06/28/21 History (Colace) ibuprofen 800 mg tablet 800 mg PO TID PRN #60 tab 06/29/21 10/06/21 Unknown Rx lamotrigine 100 mg tablet 100 mg PO DAILY 06/29/21 10/06/21 06/28/21 History (Lamictal) buspirone 7.5 mg tablet 7.5 mg PO TID #90 tab 09/18/21 10/06/21 Unknown Rx clonazepam 0.5 mg tablet 0.5 mg PO DAILY #10 tab 10/03/21 10/06/21 Unknown Rx clindamycin HCl 300 mg capsule 300 mg PO TID #30 cap 10/04/21 10/06/21 Unknown Rx Allergies Allergy/AdvReac Type Severity Reaction Status Date / Time quetiapine [From Seroquel] Allergy Severe skin Verified 10/06/21 13:02 peeling [facility] Anesthesia Medical History Aftercare following surgery of the genitourinary system Surgical History H/O: hysterectomy 04/19/2021- bilateral salpingo oophorectomy, anterior colporrhaphy augmented with allograft, single incision mid urethral slings, posterior colporrhaphy, sacrospinous fixation and cystoscopy History of bilateral tubal ligation [place], [place] by Dr. Barone Family History Father CAD (coronary artery disease) Other Cancer Chronic kidney disease (CKD) Diabetes Hyperlipidemia Hypertension Psychiatric illness Denies family history of Clotting disorder Dementia Suicide Anesthesia complication Bleeding disorder Lung disease Stroke Social History Smoking and tobacco status: current every day smoker Data Anesthesia Cardiac Studies: No Data to Display
[2021-10-11] VITALS (20 sets, daily range): BP systolic 118–165; BP diastolic 76–106; PULSE 63–111; RESP 14–22; TEMP 36.4–36.9; O2SAT 88–100
[2021-10-11] MEDS: sodium chloride 0.9% 1,000 ML 30 ML IV (11:35)
[2021-10-11] MEDS: sodium chloride 0.9% 500 ML IV (11:40)
--- NOTE | 2021-10-11 12:13 | P.ANESUD_ITS ---
Pre-Anesthetic Update Pre-Anesthetic Assessment: Date of Surgery/Procedure: 10/11/21 Preop Araseli gnosis: Vaginal granulation tissue and partial dehiscence Proposed Procedure: Operation Date: 10/11/21 12:05 Proposed Procedures p Sacrospinous Ligament Suspension 27879/n99.3(Not Applicable) - Vasu Turpin MD Any changes to Pre-Anesthetic Assessment?: No Last Intake: Intake Last Liquid Date 10/10/21 Last Liquid Time 20:00 Last Solid Date 10/10/21 Last Solid Time 19:00 Vitals: Temperature 98.5 F 10/11/21 11:09 Temperature Source Temporal Artery S can 10/11/21 11:09 Pulse Rate 73 10/11/21 11:09 Pulse Rhythm 10/11/21 11:13 Pulse Strength 3+ Normal 10/11/21 11:13 Respiratory Rate 16 10/11/21 11:09 Blood Pressure 149/106 10/11/21 11:09 Blood Pressure Nia n 120 10/11/21 11:09 Pulse Oximetry 96 10/11/21 11:09 Oxygen Delivery Me thod 10/11/21 11:13 Exam: Pre-Anes Outpt Exam: alert, oriented x 3, clear to auscultation bilaterally and regular rate & rhythm Cardiac Studies: No Data to Display
[2021-10-11] MEDS: midazolam 1 mg/mL INJ 2 mL 2 MG IVP (13:09)
[2021-10-11] MEDS: scopolamine 1.5 Patch 1 PATCH TRANSDERMA (13:13)
--- NOTE | 2021-10-11 14:42 | W.PM.OPSUD ---
Surgery/Procedure H&P Update DATE OF PROCEDURE: October 11, 2021 DATE H&P PERFORMED: 10/09/21 H&P UPDATE INFORMATION: I have reviewed H&P completed within last 30 days, I have examined patient prior to procedure and No changes to prior documentation PREOP DIAGNOSIS: Vaginal granulation tissue and partial dehesince, Vaginal apex descend PLANNED PROCEDURE: Operation Date: 10/11/21 12:05 Proposed Procedures p Sacrospinous Ligament Suspension 74909/n99.3(Not Applicable) - Vasu Turpin MD
[2021-10-11] MEDS: estrogens Conjugated Cream 30 gm 1 APPLIC VAGINAL (16:00)
--- NOTE | 2021-10-11 16:18 | PM.OP ---
Operative Report Date of procedure: October 11, 2021 Pre-op diagnosis: Preop Diagnosis Vaginal granulation tissue and partial dehesince , Vaginal apex descend Post-op diagnosis: Vaginal granulation tissue and partial vaginal incision dehesince. Procedure done: Vaginal incision revision augmented with allograft. Surgeon: Vasu Turpin MD Estimated blood loss (mL): 25 Urine output (mL): 200 Complications: Normal Findings: Vaginal granulation tissue and partial approximately 2 cm vaginal incision dehiscence. Procedure: After obtaining informed consent, the patient was taken to the operating room and placed in the supine position, given general anesthesia, and prepped and draped in sterile fashion. The abdomen, vulva and vagina were prepped and draped in a sterile manner. A time out procedure was performed. The granulation tissue was removed and the partial vaginal incision dehiscence was exposed and the vaginal mucosa surrounding the exposed sling. was then injected in the midline with normal saline. The vaginal mucosa was scored in the midline with the Bovie approximately 1 cm medial to the urethral meatus to 1 cm distal to the [vaginal cuff/cervix]. This vaginal mucosa was then undermined and then incised in the midline with the Metzenbaum scissors. The lateral aspects of the vaginal mucosa were then grasped with the Allis clamps and the vaginal mucosa was then dissected off the underlying fascia with the Metzenbaum scissors. Again, there was noted to be quite a bit of oozing at the incision, which was controlled with cautery. After adequate dissection was performed, bilaterally. A Coloplast allograft is modified at time of application to fit spacea, 3 x 3 cm piece . Allograft placed in front of cystocele ready to be implanted with the Basement Membrane facing the vagina mucosa. Suture is placed at distal end of graft and placed towards vaginal cuff. Final suture is placed on proximal portion of the graft to complete the placement overlying the bladder. Then Interrupted vertical mattress sutures of 0 Vicryl were used to elevate the cystocele superiorly. The excessive vaginal mucosa was then trimmed with the Metzenbaum scissors and the vaginal mucosa was then reapproximated in the running interlocking fashion with 2-0 Vicryl. After the repair he was noted that sacrospinous fixation was not needed. then the Alonso catheter was removed and cystoscope was inserted. The bladder was filled with sterile water. Complete evaluation of the bladder mucosa was performed noting no lacerations, dimpling, tears, bleeding of the mucosa or muscular layers. Both ureteral orifices were identified. Prompt excretion of urine from both ureteral orifices was noted. Cystoscope was withdrawn. The Alonso catheter was replaced. Excellent hemostasis was obtained. A vaginal pack is placed overnight as postoperative support for the vaginal tissues after graft placement and closure of vaginal incisions. Sponge, lap, needle, and instrument counts were correct times three. The patient was taken to the recovery room, awake and in stable condition.
[2021-10-11] MEDS: fentaNYL 50 mcg/mL INJ 2mL IVP ×2 (16:25→16:40)
--- NOTE | 2021-10-11 17:27 | PC.NURSE ---
patient arrived via stretcher from PACU at this time, large amount of bleeding was noted on sheets from pacu. No active bleeding was noted upon assessment. Patients gown and chuxs were changed upon arrival and fresh pad placed between her legs
[2021-10-11] MEDS: HYDROcodone-acetaminophen 5-325 mg Tablet PO (17:31)
[2021-10-11] MEDS: ketorolac 30 mg/mL INJ IVP ×2 (17:32→23:34)
[2021-10-11] MEDS: dextrose 5%-lactated ringers 1,000 ML 125 ML IV (17:33)
[2021-10-11] MEDS: HYDROmorphone 1 mg/mL INJ 1 mL IVP ×2 (17:50→22:31)
--- NOTE | 2021-10-11 18:19 | ANE.PACU2 ---
Inpatient post-anesthesia follow up: Airway intact: Yes Vital signs: Temperature 97.8 F Pulse Rate 74 Respiratory Rate 20 Blood Pressure 163/99 Pulse Oximetry 100 Oxygen Delivery Me thod Room Air Oxygen Flow Rate 2 Fraction of Inspir ed Oxygen Hydration adequate: Yes Nausea and vomiting: No Pain level: 2 Mental status: Baseline
[2021-10-11] MEDS: BuSPIRONE 10 mg Tablet 7.5 MG PO (21:00)
[2021-10-11] MEDS: clindamycin 150 mg Capsule 300 MG PO (21:01)
[2021-10-11] MEDS: alum-mag-hydroxide-sime 30 mL UDC PO (22:39)
[2021-10-12 00:06] VITALS: BP 97/61; PULSE 64; RESP 14; O2SAT 97
[2021-10-12] MEDS: dextrose 5%-lactated ringers 1,000 ML 125 ML IV (02:00)
[2021-10-12 03:56] VITALS: BP 115/72; PULSE 65; RESP 13; TEMP 36.8; O2SAT 98
[2021-10-12] MEDS: HYDROcodone-acetaminophen 5-325 mg Tablet PO ×2 (04:08→10:42)
[2021-10-12 05:17] LABS: Hematocrit 37.8 % (37.0-47.0); Hemoglobin 12.6 g/dL (11.5-15.3); Mean Corpuscular HGB Conc 33.3 g/dL (30.0-36.0); Mean Corpuscular Hemoglobin 31.8 pg (28.0-34.0); Mean Corpuscular Volume 95.5 fl (81-99); Mean Platelet Volume 11.2 fL (7.4-10.4); Platelet Count 168 10^3/cmm (130-400); Red Blood Count 3.96 10^6/uL (4.1-5.3); Red Cell Distribution Width 12.7 % (12.1-15.1); White Blood Count 12.6 10^3/uL (4.0-10.0)
[2021-10-12] MEDS: ketorolac 30 mg/mL INJ IVP (05:28)
--- NOTE | 2021-10-12 06:43 | PC.NURSE ---
QBL: 1940 Wet Weight: 820g Dry Weight: 720g QBL: 100 2000 Wet Weight: 110g Dry Weight: 60g QBL: 50 2200 Wet Weight: 245g Dry Weight: 140g QBL: 105g
--- NOTE | 2021-10-12 06:57 | PC.NURSE ---
vaginal packing was removed per MD order at 1940 on 10/11/21
[2021-10-12] MEDS: docusate sodium 100 mg Capsule PO (09:25)
[2021-10-12] MEDS: ibuprofen 800 mg tablet PO (09:25)
[2021-10-12] MEDS: BuSPIRONE 10 mg Tablet 7.5 MG PO (09:27)
[2021-10-12] MEDS: clindamycin 150 mg Capsule 300 MG PO (09:27)
[2021-10-12 09:30] VITALS: BP 131/74; PULSE 74; RESP 16; TEMP 36.7
--- NOTE | 2021-10-12 12:25 | P.DS_ITS ---
Discharge Providers WEB APPLICATION TESTER Date of Admission: 10/11/21 17:16 Date of Discharge: 10/12/21 Attending Provider at Admission: Vasu Turpin MD Attending Provider at Discharge: Vasu Turpin MD Primary Care Provider: Susan Regan MD Reason for Visit Reason for Visit: prolapse of vag cuff after hysterectomy Hospital Course Hospital Course Mrs. Cummings 56-year-old female is status post single incision mid urethral sling that developed granulating tissue and partial dehiscence of vaginal incision after her second revision. Admitted for planned granulating tissue removal and revision of incision again and possible sacrospinous fixation. Sacrospinous fixation was not needed after removal of granulating tissue and vaginal revision of partial dehiscence. The procedures were performed without complication. Postop observation overnight significant for some vaginal bleeding, that was later controlled. She was administered TXA. She is afebrile hemodynamically stable postoperative day 1. Tolerating diet well. Ambulating without difficulty. PVR however is elevated and the patient needs to be discharged with a Alonso catheter and was instructed to follow-up Saturday at the clinic. Physical Exam Narrative: GA: Alert and oriented ?3. HEENT: WNL. Heart: Regular rate and rhythm. Lungs: Clear to auscultation bilaterally. Abdomen: Bowel sounds present, nontender. 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 Extremities: No edema, no cyanosis, no calves pain. Urinary Catheter Management: Alonso: Cath Placed During This Visit: yes, but has since been removed by the nurse Reason for Continuing Indwelling Catheter: Decision to DC Catheter Urinary Catheter Date of Insertion: 10/11/21 Urinary Catheter Time of Insertion: 15:03 Date Urinary Catheter Removed: 10/12/21 Time Urinary Catheter Discontinued: 05:12 History History History 3 Term 3 Miscarriages/Ectopic 0 0 Living Children 3 Discharge Data Studies Completed and Pending Laboratory Results WBC 12.6 10^3/uL (4.0-10.0) H 10/12/21 05:04 RBC 3.96 10^6/uL (4.1-5.3) L 10/12/21 05:04 Hgb 12.6 g/dL (11.5-15.3) 10/12/21 05:04 Hct 37.8 % (37.0-47.0) 10/12/21 05:04 MCV 95.5 fl (81-99) 10/12/21 05:04 MCH 31.8 pg (28.0-34.0) 10/12/21 05:04 MCHC 33.3 g/dL (30.0-36.0) 10/12/21 05:04 RDW 12.7 % (12.1-15.1) 10/12/21 05:04 Plt Count 168 10^3/cmm (130-400) 10/12/21 05:04 MPV 11.2 fL (7.4-10.4) H 10/12/21 05:04 Blood Type O Positive 10/11/21 11:35 Rho(D) Type Positive 10/11/21 11:35 Antibody Screen Negative 10/11/21 11:35 Vitals Last Vital Signs Temp 98.1 F 10/12/21 09:30 Pulse 74 10/12/21 09:30 Resp 16 10/12/21 09:30 BP 131/74 10/12/21 09:30 Pulse Ox 98 10/12/21 03:56 Discharge Plan Discharge Patient Disposition: Home Condition: Stable Prescriptions: New docusate sodium [Colace] 100 mg capsule 100 mg PO BID Qty: 30 0RF acetaminophen 325 mg capsule 325 mg PO Q4H PRN (Reason: fever or pain) Qty: 60 0RF ibuprofen 800 mg tablet 800 mg PO TID PRN (Reason: pain) Qty: 60 0RF Continued Colace 100 mg capsule 100 mg PO DAILY 0RF buspirone 7.5 mg tablet 7.5 mg PO TID Qty: 90 3RF clonazepam 0.5 mg tablet 0.5 mg PO DAILY Qty: 10 0RF clindamycin HCl 300 mg capsule 300 mg PO TID Qty: 30 0RF elderberry fruit 200 mg Capsule 200 mg PO DAILY 0RF lamotrigine [Lamictal] 100 mg tablet 100 mg PO DAILY 0RF ibuprofen 800 mg tablet 800 mg PO TID PRN (Reason: pain) Qty: 60 0RF Discharge Orders: Discharge Order (Routine); Ordered 10/12/21 Ordered By: Vasu Turpin Referrals: Vasu Turpin MD [Physician] - 10/16/21 9:15 am (Alonso removal 10/16/2021 at 0915 ) Discharge Diet: Advance as tolerated and Usual diet Discharge Activity: Limit activity as instructed Patient Instructions: Laceration (DC), Postoperative Bleeding (DC), OB Food/Drug Interaction Guide, Opioid Safety, OP Post-Operative Instructions, Post Operative Pain, Bladder Sling for Women (DC), Anterior Vaginal Repair (GEN) Activity Restrictions/Additional Instructions: 1. Please call [facility] on next working day to make your post-operative appointment in 2 weeks and Saturday at the clinic. 2. Please stay home until you come back to the clinic on first post-operative check up. 3. Please follow instructions on your medications CAREFULLY. 4. If you have abdominal incision, do not cover it unless dressing is necessary because of drainage. OK to shower, but avoid bath. Leave steri-strips until they fall off. If they are still on one week after surgery, you may remove them. 5. If you had vaginal surgery or vaginal repair, Dr. Turpin may instruct you to take SITZ bath. 6. Yellow, blood tinged odorous vaginal discharge is usually normal after hysterectomy or vaginal surgeries. 7. No sexual intercourse, tampons, or douches until you are completely released from the post-operative care. 8. Avoid constipation by eating right and maybe using some Metamucil or Milk of Magnesia. 9. All prescription refills are given during the working hours. Please do no wait till it runs out. Call the clinic at [phone] before your medication runs out. The clinic will get in touch with your doctor to prescribe medications if necessary. 10. Please remain within 40 mile radius from our hospital because emergencies do happen now and then during the post-operative period. 11. If you have stairs at home, take one step at a time slowly and minimize the number of trips. It helps to stay in one floor for the next few days. No lifting except what you can lift by one hand until you are released from the post-operative care. 12. Driving is discouraged until you are well healed. It may be 3-4 weeks before you feel strong enough to drive. You should be able to turn and look through the rear window without pain and you should be able to push the brake pedal very hard without pain before you drive. No fast rules, but SAFETY should be your primary concern. DO NOT drive if you are on sedating medications such as narcotics. 13. Call the clinic (during working hours) to make urgent appointment or go to the Emergency room, if any of the following occurs: i. Vaginal bleeding becomes heavy, more than a period. ii. Incision becomes red and sore, or drains pus. iii. Your temperature is over 100.4 or you have chill. iv. IV site becomes red and swollen (a little ``knot?? is usually OK) v. Persistent nausea and vomiting vi. Persistent constipation or diarrhea vii. Rash or allergic reaction to medications. Discharge Attestations WEB APPLICATION TESTER Time Spent in Discharge Care*: greater than 30 min Coding Level of Care Code Acute Replenishment Buyer for Edis oYung
[2021-10-12 13:45] VITALS: BP 102/61; PULSE 78; RESP 16; TEMP 36.4
== END 2021-10-12 13:55 | disposition home or self-care (01) ==
LOC: OBGYN 17:17
PROVIDERS: Admitting Provider Obstetrics & Gynecology; PCP Family Medicine; Visit Provider Obstetrics & Gynecology
PROC: (CPT 57282; principal; 2021-10-11 11:55)
DX: N99.3 Prolapse of vaginal vault after hysterectomy (principal); T83.718A Erosion of other implanted mesh to organ or tissue, initial encounter; F41.9 Anxiety disorder, unspecified; F17.210 Nicotine dependence, cigarettes, uncomplicated
CPT/HCPCS: 57287; 36415; 51702; 51798; 85027; 86850; 86900; C1762; G0378; J0690; J1100; J1170; J1200; J1885; J2250; J2405; J2704; J3010; J7030; J7040

== ENCOUNTER → 2022-03-28 12:32 | Outpatient (BNVA) | payer MEDICARE, MEDICAID, SELFPAY | PROVIDERS: PCP Family Medicine; Visit Provider Family Medicine | DX: M25.50 Pain in unspecified joint (principal); L71.9 Rosacea, unspecified; F41.9 Anxiety disorder, unspecified | CPT/HCPCS: 84550; 85025; 85651; 86038; 86431 ==

== ENCOUNTER 2022-05-01 16:07 | Outpatient (CLI) | payer MEDICARE, MEDICAID, SELFPAY ==
--- NOTE | 2022-05-01 16:19 | XR_ITS ---
WS: [id number] Exam: XR cervical spine 3V* [id number] Date/Time of Exam: 05/01/2022 4:22 PM Reason For Exam: M54.2 - Cervicalgia Comparison 03/25/2015. No acute fracture or dislocation. There is straightening and slight reversal of the normal cervical l ordosis. Very slight degenerative retrolisthesis of C5. Facet arthropathy at all levels. Very slight narrowing of the C5-6 disc. Normal paraspinal soft tissues. The odontoid is intact. XR/XR cervical spine 3V* [id number] IMPRESSION: 1. No acute fracture or malalignment. 2. Degenerative changes. Straightening of the C-spine.
== END 2022-05-01 16:08 | disposition home or self-care (01) ==
LOC: RAD 16:11
PROVIDERS: PCP Family Medicine; Visit Provider Family Medicine
DX: M47.892 Other spondylosis, cervical region (principal); M54.2 Cervicalgia
CPT/HCPCS: 72040

== ENCOUNTER → 2022-09-19 08:53 | Outpatient (BNVA) | payer MEDICARE, MEDICAID, SELFPAY | PROVIDERS: PCP Family Medicine; Visit Provider Podiatrist Foot & Ankle Surgery | DX: M25.871 Other specified joint disorders, right ankle and foot (principal); M21.6X1 Other acquired deformities of right foot; M21.6X2 Other acquired deformities of left foot | CPT/HCPCS: 73630; 99204 ==

== ENCOUNTER 2022-09-20 09:23 | Outpatient (CLI) | payer MEDICARE, MEDICAID, SELFPAY ==
--- NOTE | 2022-09-20 09:31 | MM_ITS ---
WS: [email or web address] BILATERAL SCREENING DIGITAL TOMOSYNTHESIS MAMMOGRAM WITH CAD HISTORY: Z12.39 - Encounter for other screening for malignant neoplasm... COMPARISON: 11/23/2020 and 09/06/2010 Bilateral CC and MLO views with tomosynthesis and synthetic mammography submitted. Computer aided det ection analyzed. Breast composition: There are scattered areas of fibroglandular density. No suspicious masses, microc alcifications or architectural distortion. MM/[place] [id number] IMPRESSION: BI-RADS: 1-Negative FOLLOW UP: 1 Year Follow-up
== END 2022-09-20 09:24 | disposition home or self-care (01) ==
PROVIDERS: PCP Family Medicine; Visit Provider Obstetrics & Gynecology
DX: Z12.31 Encounter for screening mammogram for malignant neoplasm of breast (principal)
CPT/HCPCS: 77063; 77067

== ENCOUNTER 2022-10-31 10:30 | Outpatient (CLI) | payer MEDICARE, MEDICAID, SELFPAY | END 2022-10-31 10:31 | disposition home or self-care (01) | LOC: SPT 10:31 | PROVIDERS: PCP Family Medicine; Visit Provider Podiatrist Foot & Ankle Surgery | DX: Z46.89 Encounter for fitting and adjustment of other specified devices (principal); M79.671 Pain in right foot; M79.672 Pain in left foot; M25.871 Other specified joint disorders, right ankle and foot; M25.872 Other specified joint disorders, left ankle and foot; M21.6X1 Other acquired deformities of right foot; M21.6X2 Other acquired deformities of left foot | CPT/HCPCS: 97760; 99213; L3030 ==

== ENCOUNTER → 2023-03-18 15:36 | Outpatient (BNVA) | payer MEDICARE, MEDICAID, SELFPAY | PROVIDERS: PCP Family Medicine; Visit Provider Family Medicine | DX: M25.512 Pain in left shoulder (principal) | CPT/HCPCS: 73030 ==

== ENCOUNTER 2023-04-16 09:07 | Outpatient (CLI) | payer MEDICARE, MEDICAID, SELFPAY ==
--- NOTE | 2023-04-16 09:30 | MR_ITS ---
WS: [id number] MRI LEFT SHOULDER HISTORY: M25.512 - Pain in left shoulder COMPARISON: Radiographs 03/18/2023 TECHNIQUE: Multiplanar sequences of the shoulder joint are submitted. Mild AC joint arthritis. Mild hypertrophy of the AC joint. Small osteophyte causing mild encroachment upon the myotendinous insertion of the supraspinatus. Additional 5 mm osteophyte from the distal und ersurface of the acromion with subacromial impingement. Small amount of fluid in the subacromial burs a. Normal position of the biceps tendon. No os acromion. No muscle atrophy or edema. Thickening and increased signal in the distal supraspinatus tendon. Soft tissue thickening is greatest just distal to the acromial impingement. No tear is identified. Infrasp inatus and subscapularis tendons are intact. Mild fraying and increased signal within the anterior la siria. Cannot labral tear. Superior labrum appears intact. Increased T2 signal in the middle glenohume ral ligament. Suspected partial tear. IMPRESSION: 1. Mild AC joint arthritis. 2. Mild subacromial impingement. 3. Moderate tendinopathy in the distal supraspinatus tendon. No tear. 4. Mild degenerative changes in the anterior labrum. No tear. 5. Partial tear middle glenohumeral ligament.
== END 2023-04-16 09:08 | disposition home or self-care (01) ==
PROVIDERS: PCP Family Medicine; Visit Provider Family Medicine
DX: M19.012 Primary osteoarthritis, left shoulder (principal); M75.42 Impingement syndrome of left shoulder
CPT/HCPCS: 73221

== ENCOUNTER → 2023-05-29 14:47 | Outpatient (BNVA) | payer MEDICARE, MEDICAID, SELFPAY | PROVIDERS: PCP Family Medicine; Visit Provider Specialist | DX: M25.812 Other specified joint disorders, left shoulder; M67.912 Unspecified disorder of synovium and tendon, left shoulder | CPT/HCPCS: 99204 ==

== ENCOUNTER 2023-08-02 12:13 | Outpatient (CLI) | payer MEDICARE, MEDICAID, SELFPAY ==
--- NOTE | 2023-08-02 12:15 | MR_ITS ---
WS: [id number] MRI LEFT SHOULDER ARTHROGRAM HISTORY: left shoulder injury COMPARISON: 04/16/2023 TECHNIQUE: Pre and postcontrast imaging. Gadolinium mixture was injected under fluoroscopy. Coronal T 1 fat sat, sagittal T2 fat sat, coronal T2 fat sat, axial proton density, axial T1 nonfat saturation. Good injection of the shoulder joint with contrast. There is a very thickened distal middle glenohume ral ligament. The more proximal middle glenohumeral ligament is very redundant and very thin and ther e is probably at least a partial tear. The adjacent subscapularis tendon appears intact. There is a l arge amount of contrast filling the subscapularis recess but it does not appear to extend into the clinton bcoracoid recess. I cannot identify a subscapularis tendon tear. Due to the amount of fluid along th e tendon I suspect there could be an occult tear at its insertion site. There is a very redundant mid dle glenohumeral ligament. There is irregularity involving the anterior labrum but no tear is identif ied. In the region of the anterior labrum and the middle glenohumeral ligament there is very thickened sof t tissue that is of decreased signal on the T1 sequence. This is not a normal anterior labrum and not a normal middle glenohumeral ligament. I wonder if there is a retracted partial tear of the middle g lenohumeral ligament which is inseparable from the labrum. On the prior examination there is a suspec mallorie labral tear. This is not appreciated on the postcontrast imaging. Some of these changes may all b e scar tissue and fibrosis. Biceps tendon is in normal position. There is no contrast extending into the subacromial or subdeltoi d bursa. There is also a very small axillary pouch which is not distended with contrast. Very mild th ickening of the coracohumeral ligament. IMPRESSION: 1. Abnormal low signal soft tissue in the region of the anterior labrum and the middle glenohumeral ligament. This may be scar tissue and fibrosis. Suspect there is probably a partial tear of the middl e glenohumeral ligament which is track retracted and clumped near the anterior labrum. 2. No rotator cuff tear is identified. There is a tiny area of increased contrast near the distal in sertion site of the subscapularis tendon which could represent a very tiny insertion site tear. 3. No rotator cuff muscle atrophy. 4. Small axillary pouch and mild thickening of the coracohumeral ligament suggesting adhesive capsul itis.
--- NOTE | 2023-08-02 13:00 | IR_ITS ---
WS: [email or web address] LEFT SHOULDER ARTHROGRAM UNDER FLUOROSCOPY. PRIOR TO MRI EVALUATION. HISTORY: left shoulder injury COMPARISON: Prior MRI 04/16/2023. FLUOROSCOPY TIME: 1min [id number] # of spot films: 1 Procedure, risks and complications were explained to the patient. Consent has been obtained. Under fluoroscopic guidance the skin is marked over the medial superior third of the humeral head, cl eansed with ChloraPrep and anesthetized with lidocaine. 22-gauge spinal needle is inserted to the cor dulce of the humeral head. Test injection with Omnipaque reveals the needle is appropriately positioned in the joint. A mixture of 10 cc sterile saline, 5 cc Omnipaque and 0.1 mmol gadolinium are injected under fluoroscopic guidance. Patient tolerated the joint distention well. No complications. IMPRESSION: Uncomplicated LEFT shoulder joint injection prior to MRI.
== END 2023-08-02 12:14 | disposition home or self-care (01) ==
LOC: RAD 12:13
PROVIDERS: PCP Family Medicine; Visit Provider Specialist
DX: S49.92XA Unspecified injury of left shoulder and upper arm, initial encounter (principal); X58.XXXA Exposure to other specified factors, initial encounter; R93.7 Abnormal findings on diagnostic imaging of other parts of musculoskeletal system
CPT/HCPCS: 23350; 73222; 77002; A9577; Q9966

== ENCOUNTER → 2023-08-12 09:37 | Outpatient (BNVA) | payer MEDICARE, MEDICAID, SELFPAY | PROVIDERS: PCP Family Medicine; Visit Provider Specialist | DX: M25.812 Other specified joint disorders, left shoulder; M75.02 Adhesive capsulitis of left shoulder | CPT/HCPCS: 20610; 99214; J1100; J2795; J3301 ==

== ENCOUNTER 2024-08-26 10:33 | Outpatient (CLI) | payer MEDICARE, MEDICAID, SELFPAY ==
--- NOTE | 2024-08-26 10:42 | MM_ITS ---
WS: [email or web address] BILATERAL SCREENING DIGITAL TOMOSYNTHESIS MAMMOGRAM WITH CAD HISTORY: SCREENING COMPARISON: 09/20/2022, 11/23/2020 Bilateral CC and MLO views with tomosynthesis and synthetic mammography submitted. Computer aided detection analyzed. Breast composition: There are scattered areas of fibroglandular density. No suspicious masses, microcalcifications or architectural distortion. MM/MM scr BI tomosynthesis [id number] IMPRESSION: BI-RADS: 2 - Benign. FOLLOW UP: 1 Year Follow-up
== END 2024-08-26 10:34 | disposition home or self-care (01) ==
LOC: RAD 10:37
PROVIDERS: PCP Internal Medicine; Visit Provider Internal Medicine
DX: Z12.31 Encounter for screening mammogram for malignant neoplasm of breast (principal); R92.323 Mammographic fibroglandular density, bilateral breasts
CPT/HCPCS: 77063; 77067